=== PATIENT | male | born 1950 | race Caucasian/White ===

== ENCOUNTER 2017-08-09 12:27 | Inpatient (IN) | payer OTHER ==
[~2017-08-09] VITALS: Ht 172.7 cm; Wt 83.9 kg
[2017-08-09 13:12] LABS: ABSOLUTE BASOPHIL COUNT 0 /CUMM (0.0-0.2); ABSOLUTE EOSINOPHIL COUNT 0.2 /CUMM (0.0-0.7); ABSOLUTE GRANULOCYTE CT 7.9 /CUMM (1.4-6.5); ABSOLUTE MONOCYTE COUNT 0.9 /CUMM (0.10-0.60); BASOPHIL % 0.1 % (0.0-2.0); EOSINOPHIL % 2.1 % (0-5); GRANULOCYTE % 78.9 % (42.2-75.2); HEMATOCRIT 48.9 % (42-52); MEAN CORPUSCULAR HGB 30.9 PG (27.0-31.0); MEAN CORPUSCULAR VOLUME 88.3 FL (80.0-94.0); MEAN PLATELET VOLUME 8.7 FL (7.4-10.4); PLATELET COUNT 207 /CUMM (130-400); RBC DISTRIBUTION WIDTH 13.2 % (11.5-14.5); RED BLOOD CELL CT 5.54 /CUMM (4.70-6.10); WHITE BLOOD CELL COUNT 10.1 /CUMM (4.8-10.8)
[2017-08-09] MEDS ORDERED: AMLODIPINE BESYL5 M1 PO (14:54)
[2017-08-09] MEDS ORDERED: AMOXICILLIN500 M2 PO (14:55)
--- NOTE | 2017-08-09 15:32 | ED GI/GU/ABDOMINAL COMPLAINT ---
History of Present Illness General Chief Complaint: Abdominal Pain/Flank Pain Stated Complaint: BLOATED,CONSTIPATED, NO BM IN 1WK Source: patient Exam Limitations: no limitations Vital Signs & Intake/Output Vital Signs & Intake/Output Vital Signs Date Time Temp Pulse Resp B/P B/P Pulse O2 O2 Flow FiO2 Mean Ox Delivery Rate 08/09 1520 98.2 80 18 166/92 97 Room Air 08/09 1231 97.6 93 16 134/84 97 Room Air Allergies Coded Allergies: No Known Allergies (08/09/17) Reconcile Medications Amlodipine Besylate 5 MG TABLET 1 TAB PO DAILY heart (Reported) Amoxicillin 500 MG CAPSULE 1 CAP PO BID ANTIBIOTIC, INFECTION (Reported) Triage Note: PT TO ED C/O ABD BLOATING. ABD FEELS FIRM. STATES HE HAS BEEN CONSTIPATED SINCE LAST . THINKS HE MAY HAVE HAD 1 BM SINCE THEN BUT IS UNSURE. DENIES ANY ABD PAIN AT THE MOMENT. DENIES ANY N/V CURRENTLY. USED EX-LAX LAST NIGHT WITH NO RELIEF. ALSO STARTED TAKING PROBIOTICS. Triage Nurses Notes Reviewed? yes Onset: Gradual Duration: week(s): (1), constant, continues in ED, getting worse Timing: single episode today Quality/Severity: dullness, fullness Severity Numbers: 6 Location: generalized abdomen Radiation: no radiation Activities at Onset: none Prior Abdominal Problems: none Past Sexual History: Unobtainable at this time No Modifying Factors: none Modifying Factors: Worsens With: movement, palpation. Associated Symptoms: abdominal pain, nausea/vomiting, constipation HPI: 66-year-old male past medical history of hypertension and alcohol abuse presents for evaluation of constipation, abdominal distention, nausea and abdominal pain. Patient states that he has not had a bowel movement in over a week. He states that his abdomen is gradually become more distended. He reports associated nausea decreased appetite no vomiting. He also states that his urine is dark. He states that his abdomen has some diffuse fullness and mild pain. No back pain. No recent surgeries. He does note that he drinks approximately 6 beers almost every day last drink was 2 days ago. Denies any history of alcohol withdrawal or alcohol withdrawal seizures. He denies any history of pancreatitis. No diarrhea chest pain shortness of breath. He states that he took a laxative yesterday without any relief. He is not taking any pain medicine. Past History Travel History Traveled to [place] past 21 day No Medical History Any Pertinent Medical History? see below for history Cardiovascular: hypertension Surgical History Surgical History: non-contributory Psychosocial History Tobacco Use: Current Daily Use Daily Tobacco Use Amount/Type: => 5 Cigarettes daily Family History Hx Contributory? No Review of Systems Review of Systems Constitutional: Reports: no symptoms. EENTM: Reports: no symptoms. Respiratory: Reports: no symptoms. Cardiovascular: Reports: no symptoms. GI: Reports: see HPI, abdominal pain, bloating, constipation, nausea. Genitourinary: Reports: no symptoms. Musculoskeletal: Reports: no symptoms. Skin: Reports: no symptoms. Neurological/Psychological: Reports: no symptoms. Hematologic/Endocrine: Reports: no symptoms. Immunologic/Allergic: Reports: no symptoms. All Other Systems: Reviewed and Negative Physical Exam Physical Exam General Appearance: well developed/nourished, no apparent distress, alert, awake Head: atraumatic, normal appearance Eyes: Bilateral: PERRL, EOMI, other (scleral icterus). Ears, Nose, Throat, Mouth: hearing grossly normal, moist mucous membrane Neck: normal inspection, supple, full range of motion Respiratory: normal breath sounds, chest non-tender, no respiratory distress, lungs clear Cardiovascular: regular rate/rhythm, normal peripheral pulses Peripheral Pulses: 2+ radial (R), 2+ radial (L) Gastrointestinal: normal bowel sounds, no organomegaly, distention, abdomen is diffusely distended and firm. Mild diffuse tenderness Back: normal inspection, normal range of motion, no vertebral tenderness Extremities: normal range of motion Neurologic/Psych: no motor/sensory deficits, awake, alert, oriented x 3 Skin: intact, normal color, warm/dry Core Measures ACS in differential dx? No Sepsis Present: No Sepsis Focused Exam Completed? No Progress Differential Diagnosis: AAA, appendicitis, biliary colic, bowel obstruction, colon cancer, cholecystitis, diverticulitis, hepatitis, ischemic bowel, inflamm bowel dis, pancreatitis, peptic ulcer, PUD/GERD, SBO, ureterolithiasis, UTI/ pyelo, malignancy, cholangitis, alcoholic hepatitis, alcoholic gastritis Plan of Care: Orders Procedure Date/time Status Admit to inpatient 08/09 1658 Active URINALYSIS 08/09 1600 Active Add-on Test (ER Only) 08/09 1541 Active Add-on Test (ER Only) 08/09 1454 Active EKG 08/09 1454 Active Add-on Test (ER Only) 08/09 1416 Active MAGNESIUM 08/09 1304 Complete LIPASE 08/09 1304 Complete LACTIC ACID 08/09 1304 Complete HEPATITIS PANEL 08/09 1304 Complete DIRECT BILIRUBIN 08/09 1304 Complete TROPONIN LEVEL 08/09 1234 Complete COMPREHENSIVE METABOLIC PANEL 08/09 1234 Complete CBC WITHOUT DIFFERENTIAL 08/09 1234 Complete Laboratory Tests 08/09/17 1304: Anion Gap 15, Estimated GFR > 60, BUN/Creatinine Ratio 16.7, Glucose 156 H, Lactic Acid 1.1, Calcium 9.5, Magnesium 3.3 H, Total Bilirubin 8.0 H, Direct Bilirubin 6.8 H, AST 177 H, ALT 355 H, Alkaline Phosphatase 189 H, Troponin I < 0.01, Total Protein 7.9, Albumin 4.4, Globulin 3.5, Albumin/Globulin Ratio 1.3, Lipase 2465 H, CBC w Diff NO MAN DIFF REQ, RBC 5.54, MCV 88.3, MCH 30.9, MCHC 35.0, RDW 13.2, MPV 8.7, Gran % 78.9 H, Lymphocytes % 10.3 L, Monocytes % 8.6, Eosinophils % 2.1, Basophils % 0.1, Absolute Granulocytes 7.9 H, Absolute Lymphocytes 1.0 L, Absolute Monocytes 0.9 H, Absolute Eosinophils 0.2, Absolute Basophils 0, Hepatitis A IgM Ab NONREACTIVE, Hep Bs Antigen NONREACTIVE , Hep B Core IgM Ab Conf NONREACTIVE, Hepatitis C Antibody NONREACTIVE pt Seen and evaluated. He is reporting constipation and abdominal distention nausea and mild abdominal pain over the past week. On exam vital signs are stable however patient appears jaundiced. He does report heavy alcohol use last drink 2 days ago. No history of withdrawal seizures. Basic blood work was obtained and shows a lipase of almost 2500 elevated LFTs and elevated bilirubin of 8. CT scan shows evidence of a mass on the head of the pancreas and a dilated pancreatic duct and common bile duct. Spoke with Dr. Alexander from gastroenterology. He recommends admitting the patient for ERCP on Wednesday. Patient will require IV fluids and IV pain meds anti-emetic GI consult, ERCP, npo. Case discussed with Dr. Key he agrees Diagnostic Imaging: Viewed by Me: CT Scan. Discussed w/RAD: CT Scan. Radiology Impression: PATIENT: MOI PULLIAM PRESENT AGE: 66 PATIENT ACCOUNT NO: [id number] : 51 LOCATION: [facility] ORDERING PHYSICIAN: Tamika GONZALEZ SERVICE DATE: 08/09/17 EXAM TYPE: CAT - CT ABD & PELVIS W IV CONTRAST EXAMINATION: CT ABDOMEN AND PELVIS WITH CONTRAST CLINICAL INFORMATION: Constipation. Bilirubin 8.0 COMPARISON: None TECHNIQUE: Multidetector volumetric imaging was performed of the abdomen and pelvis following IV administration of 95 mL of Optiray 320 intravenous contrast. Sagittal and coronal reformatted images were obtained on the technologist's workstation. DLP: 332.69 mGy-cm FINDINGS: LUNG BASES: Linear atelectasis/ scarring at both lung bases. There is no basilar infiltrates and no pleural effusion. LIVER, GALLBLADDER, AND BILIARY TREE: There is slight dilatation of the left-sided intrahepatic biliary radicals. No lesion within the liver. The gallbladder is mildly distended. The extrahepatic CBD at the guera hepatis is dilated to a diameter of 1.1 cm. PANCREAS: There is a cystic mass at the head of the pancreas measuring 2.5 x 2.7 cm transverse. This has a density measurement of 6 Hounsfield units, simple fluid. The pancreatic duct is slightly dilated measuring about 3 mm at the pancreatic body. There is no edema around the pancreas. There are multiple coarse calcifications of the pancreatic head. These range in size from 1 to 2 mm to the largest measuring about 5 mm. These calcifications do not appear to be within the CBD but it is difficult to track the duct to the ampulla due to the cystic lesion at the pancreas. It is even difficult to see if this cystic mass at the head of the pancreas communicates to the CBD. The largest calcification at the of the pancreas measuring 5 mm is either within or directly adjacent to the pancreatic duct, coronal image 34. SPLEEN: Unremarkable. ADRENAL GLANDS: Unremarkable. KIDNEYS AND URETERS: The kidneys are normal in size, shape, and attenuation. No hydronephrosis, hydroureter, or calculi seen. No perinephric stranding. BLADDER: Unremarkable. GASTROINTESTINAL TRACT: There are multiple diverticula of the colon. The diverticula are most numerous at the distal descending colon. There is no diverticulitis. There is no bowel wall thickening or edema. Moderate volume of scattered stool in the colon. The appendix is normal. The small bowel loops are unremarkable. ABDOMINAL WALL: There is a fat-containing inguinal hernia on the left side measuring 2.2 cm AP. There is a small fat-containing umbilical hernia. LYMPH NODES: Normal. VASCULAR: There is scattered atherosclerotic vascular wall calcifications of aorta and iliac vessels. There is no aneurysm of the aorta. PELVIC VISCERA: Prostate measures 4.8 cm transverse with coarse calcification centrally. OSSEOUS STRUCTURES: Multilevel degenerative spondylosis spine with endplate spurring, disc height narrowing, and facet joint arthrosis involving the lower thoracic and the lower lumbar spine. IMPRESSION: 1. 2.5 x 2.7 cm cystic lesion at the head of the pancreas. This is sharply marginated and has a density measurement of simple fluid. 2. There is dilatation of both the CBD and the pancreatic duct. The gallbladder is mildly distended without edema around the gallbladder. No calcified gallstone. 3. There are multiple calcifications at the head of the pancreas. None of these calcifications appear related to the CBD or the ampulla but the coarse calcification measuring 5 mm at the head of the pancreas could be in or directly adjacent to the pancreatic duct at the head of the pancreas. 4. No evidence of pancreatitis with no edema around the pancreas. This critical result was discussed with Dr. Trent Victoria on 08/09/2017, 3:35 PM and it was ascertained that the content and urgency of the report was understood at the time of direct communication. DICTATED BY: Mumtaz Alberto MD DATE/TIME DICTATED:08/09/171512 [employer] INSTALLER:FABIANA DATE/TIME TRANSCRIBED:1512 CONFIDENTIAL, DO NOT COPY WITHOUT APPROPRIATE AUTHORIZATION. Initial ED EKG: sinus rhythm rate 78, probable left atrial abnormality, left ventricular hypertrophy, borderline prolonged QT, QTC 493 Departure Departure Disposition: STILL A PATIENT Condition: Stable Clinical Impression Primary Impression: Obstructive jaundice Secondary Impressions: Acute pancreatitis Qualifiers: Pancreatitis type: unspecified pancreatitis type Acute pancreatitis complication: unspecified Qualified Code: K85.90 - Acute pancreatitis without necrosis or infection, unspecified Referrals: Adrien BOYKIN,Robert Puentes (PCP/Family) Departure Forms: Customer Survey General Discharge Information Admission Note Spoke With: Fabrice BOYKIN,Leroy Michael Documentation of Exam: Documentation of any treatments & extenuating circumstances including Concerns Regarding Discharge (functional status, medication knowledge or non-compliance, living conditions, etc.) that warrant an admission rather than observation: [ Serial labs, serial abdominal exams, monitoring of vital signs, GI consult, ERCP , IR biopsy, nothing by mouth, IV fluids, IV pain meds, IV anti-emetics]
--- NOTE | 2017-08-09 15:47 | Cons- Gastroenterology ---
General Information and HPI Consulting Request Date of Consult: 08/09/17 Requested By: CARLOS Diana Reason for Consult: Obstructive jaundice. Increased LFTs. Abrnomal ct scan concerning for malignancy. Source of Information: patient Exam Limitations: no limitations History of Present Illness: Mr. Slater is a 66 year old male with a history of htn who presented to today with complaints of worsening abodminal distention and constipation for the past week and in his work up was found to have markedly elevated LFTs and a ct scan was concerning for a pancreatic malignancy. He notes that over the past week he has had progressive bloating and he has only passed a scant amount of stool during this time. He hasn't noticed himself to be jaundiced and the stool he has had has been normal in color, but he notes that his urine has been dark over the past week. He has had some nasuea and bilious vomiting, but no hematemesis. He reports a poor appetite and he feels as though he may be losing muscle mass/weight, but he isn't certain of this. He has some back pain too, but he denies any abdominal pain with eating radiating through to his back. He denies any pruritus or high fevers at home. In the ER he was afebrile and hemodynamically stable, but he was noted to have a direct hyperbilirubinemia along with moderately elevated transaminases and an elevated lipase as well and a ct scan done with IV contrast showed biliary ductal dilatation along with an abnormal pancreatic head concerning for a pancreatic malignancy. Allergies/Medications Allergies: Coded Allergies: No Known Allergies (08/09/17) Home Med List: Amlodipine Besylate 5 MG TABLET 1 TAB PO DAILY heart (Reported) Current Medications: Current Medications Sig/Vivi Start time Last Medication Dose Route Stop Time Status Admin Ondansetron HCl 0 .STK-MED ONE 08/09 1556 DC .ROUTE Ondansetron HCl 4 MG ONCE ONE 08/09 1545 DC 08/09 IV 08/09 1546 1557 Sodium Chloride 1,000 ML BOLUS ONE 08/09 1545 AC 08/09 IV 08/09 1644 1557 Past History Travel History Traveled to [place] past 21 day No Medical History Cardiovascular: hypertension Surgical History Surgical History: none Review of Systems Review of Systems Constitutional: Reports: malaise, weakness, unexplained weight loss. Denies: chills, diaphoresis, fever. EENTM: Denies: icterus. Cardiovascular: Denies: no symptoms. Respiratory: Denies: no symptoms. GI: Reports: see HPI. Genitourinary: Reports: see HPI (dark urine). Musculoskeletal: Reports: back pain. Denies: joint swelling. Skin: Denies: jaundice. Neurological/Psychological: Denies: no symptoms. Hematologic/Endocrine: Denies: no symptoms. Immunologic/Allergic: Denies: no symptoms. All Other Systems: Reviewed and Negative Exam & Diagnostic Data Vital Signs and I&O Vital Signs Date Time Temp Pulse Resp B/P B/P Pulse O2 O2 Flow FiO2 Mean Ox Delivery Rate 08/09 1520 98.2 80 18 166/92 97 Room Air 08/09 1231 97.6 93 16 134/84 97 Room Air Intake & Output 08/09 0400 08/08 0400 08/07 0400 Intake Total 0 Output Total 0 Balance 0 Intake, Oral 0 Output, Urine 0 Results Pertinent Lab Results: Laboratory Tests 08/09 1304 Chemistry Sodium (137 - 145 mmol/L) 137 Potassium (3.5 - 5.1 mmol/L) 3.5 Chloride (98 - 107 mmol/L) 101 Carbon Dioxide (22 - 30 mmol/L) 21 L Anion Gap (5 - 16) 15 BUN (9 - 20 mg/dL) 10 Creatinine (0.7 - 1.2 mg/dL) 0.6 L Estimated GFR (>60 ml/min) > 60 BUN/Creatinine Ratio (7 - 25 %) 16.7 Glucose (65 - 99 mg/dL) 156 H Lactic Acid (0.7 - 2.1 mmol/L) 1.1 Calcium (8.4 - 10.2 mg/dL) 9.5 Magnesium (1.6 - 2.3 mg/dL) 3.3 H Total Bilirubin (0.2 - 1.3 mg/dL) 8.0 H Direct Bilirubin (< 0.4 mg/dL) 6.8 H AST (17 - 59 U/L) 177 H ALT (21 - 72 U/L) 355 H Alkaline Phosphatase (< 127 U/L) 189 H Troponin I (<0.11 ng/ml) < 0.01 Total Protein (6.3 - 8.2 g/dL) 7.9 Albumin (3.5 - 5.0 g/dL) 4.4 Globulin (1.9 - 4.2 gm/dL) 3.5 Albumin/Globulin Ratio (1.1 - 2.2 %) 1.3 Lipase (23 - 300 U/L) 2465 H Hematology CBC w Diff NO MAN DIFF REQ WBC (4.8 - 10.8 /CUMM) 10.1 RBC (4.70 - 6.10 /CUMM) 5.54 Hgb (14.0 - 18.0 G/DL) 17.1 Hct (42 - 52 %) 48.9 MCV (80.0 - 94.0 FL) 88.3 MCH (27.0 - 31.0 PG) 30.9 MCHC (33.0 - 37.0 G/DL) 35.0 RDW (11.5 - 14.5 %) 13.2 Plt Count (130 - 400 /CUMM) 207 MPV (7.4 - 10.4 FL) 8.7 Gran % (42.2 - 75.2 %) 78.9 H Lymphocytes % (20.5 - 51.1 %) 10.3 L Monocytes % (1.7 - 9.3 %) 8.6 Eosinophils % (0 - 5 %) 2.1 Basophils % (0.0 - 2.0 %) 0.1 Absolute Granulocytes (1.4 - 6.5 /CUMM) 7.9 H Absolute Lymphocytes (1.2 - 3.4 /CUMM) 1.0 L Absolute Monocytes (0.10 - 0.60 /CUMM) 0.9 H Absolute Eosinophils (0.0 - 0.7 /CUMM) 0.2 Absolute Basophils (0.0 - 0.2 /CUMM) 0 Serology Hepatitis A IgM Ab (NONREACTIVE) NONREACTIVE Hep Bs Antigen (NONREACTIVE) Pending Hep B Core IgM Ab Conf (NONREACTIVE) NONREACTIVE Hepatitis C Antibody (NONREACTIVE) NONREACTIVE Assessment/Plan Assessment/Recommendations: Assessment: Mr. Slater is a 66 year old male who presented with complaints of bloating and constiaption and in his work up was noted to have obstructive jaundice presumably secondary to a pancreatic cancer based on the preliminary reports of the ct scan. He is currently without cholangitis (no fevers or significant pain) so endoscopic intervention to decompress the biliary tree isn' t urgent, but it should ultimately be done to both relieve the obstruction and to get brushings from the duct to further evaluate for malignancy. Of note, his lipase is moderately elevated to a level that would indicate pancreatitis, but he is currently without symptoms of pancreatitis (abd pain that radiates to the back with eating) and I therefore feel the elevated lipase is from the tumor and not necessarily acute pancreatitis. Recommendations: 1. Admit for observation. 2. Follow daily lfts 3. Follow up official ct scan results 4. Notify GI for signs of cholangitis (high fevers, RUQ pain etc) 5. Observe off of antibiotics 6. Check an INR 7. Miralax as needed for constipation 8. Analgesia as needed 9. Advance diet as tolerated 10. Will tentatively plan for a diagnostic/therapeutic ERCP on Wednesday, but will do sooner if he develops signs of cholangitis in the interim time period. Consult Acknowledgment - Thank you for your consult request.
--- NOTE | 2017-08-09 16:08 | CT SCAN REPORT ---
EXAMINATION: CT ABDOMEN AND PELVIS WITH CONTRAST CLINICAL INFORMATION: Constipation. Bilirubin 8.0 COMPARISON: None TECHNIQUE: Multidetector volumetric imaging was performed of the abdomen and pelvis following IV administration of 95 mL of Optiray 320 intravenous contrast. Sagittal and coronal reformatted images were obtained on the technologist's workstation. DLP: 332.69 mGy-cm FINDINGS: LUNG BASES: Linear atelectasis/scarring at both lung bases. There is no basilar infiltrates and no pleural effusion. LIVER, GALLBLADDER, AND BILIARY TREE: There is slight dilatation of the left-sided intrahepatic biliary radicals. No lesion within the liver. The gallbladder is mildly distended. The extrahepatic CBD at the guera hepatis is dilated to a diameter of 1.1 cm. PANCREAS: There is a cystic mass at the head of the pancreas measuring 2.5 x 2.7 cm transverse. This has a density measurement of 6 Hounsfield units, simple fluid. The pancreatic duct is slightly dilated measuring about 3 mm at the pancreatic body. There is no edema around the pancreas. There are multiple coarse calcifications of the pancreatic head. These range in size from 1 to 2 mm to the largest measuring about 5 mm. These calcifications do not appear to be within the CBD but it is difficult to track the duct to the ampulla due to the cystic lesion at the pancreas. It is even difficult to see if this cystic mass at the head of the pancreas communicates to the CBD. The largest calcification at the of the pancreas measuring 5 mm is either within or directly adjacent to the pancreatic duct, coronal image 34. SPLEEN: Unremarkable. ADRENAL GLANDS: Unremarkable. KIDNEYS AND URETERS: The kidneys are normal in size, shape, and attenuation. No hydronephrosis, hydroureter, or calculi seen. No perinephric stranding. BLADDER: Unremarkable. GASTROINTESTINAL TRACT: There are multiple diverticula of the colon. The diverticula are most numerous at the distal descending colon. There is no diverticulitis. There is no bowel wall thickening or edema. Moderate volume of scattered stool in the colon. The appendix is normal. The small bowel loops are unremarkable. ABDOMINAL WALL: There is a fat-containing inguinal hernia on the left side measuring 2.2 cm AP. There is a small fat-containing umbilical hernia. LYMPH NODES: Normal. VASCULAR: There is scattered atherosclerotic vascular wall calcifications of aorta and iliac vessels. There is no aneurysm of the aorta. PELVIC VISCERA: Prostate measures 4.8 cm transverse with coarse calcification centrally. OSSEOUS STRUCTURES: Multilevel degenerative spondylosis spine with endplate spurring, disc height narrowing, and facet joint arthrosis involving the lower thoracic and the lower lumbar spine. IMPRESSION: 1. 2.5 x 2.7 cm cystic lesion at the head of the pancreas. This is sharply marginated and has a density measurement of simple fluid. 2. There is dilatation of both the CBD and the pancreatic duct. The gallbladder is mildly distended without edema around the gallbladder. No calcified gallstone. 3. There are multiple calcifications at the head of the pancreas. None of these calcifications appear related to the CBD or the ampulla but the coarse calcification measuring 5 mm at the head of the pancreas could be in or directly adjacent to the pancreatic duct at the head of the pancreas. 4. No evidence of pancreatitis with no edema around the pancreas. This critical result was discussed with Dr. Trnet Victoria on 08/09/2017, 3:35 PM and it was ascertained that the content and urgency of the report was understood at the time of direct communication.
--- NOTE | 2017-08-09 17:51 | Admission Certification ---
Admission Certification Certification Statement - As attending physician, I certify that at the time of - admission, based on clinical presentation, severity of - symptoms, need for further diagnostic testing and - therapeutic interventions, and risk of adverse outcomes - without in-hospital treatment, in my clinical assessment, - this patient requires an acute hospital stay for a minimum - of two nights or longer. I have also considered psychsocial - factors such as support system, advanced age, financial - issues, cognitive issues, and failed out-patient treatments, - past re-admission history, safety of patient, and lack of - compliance as applicable. Specific rationale supporting this admission is: obstructive jaundice new onset/ pancreatic mass
--- NOTE | 2017-08-09 17:51 | History & Physical ---
Keith BOYKIN,[facility] 08/09/17 1751: General Information and HPI MD Statement: I have seen and personally examined MOI PULLIAM and documented this H&P. The patient is a 66 year old M who presented with a patient stated chief complaint of [abdominal pain]. Source of Information: patient Exam Limitations: no limitations History of Present Illness: The patient is 66-year-old gentleman with past medical history of hypertension. He presented to [facility] ED on 08/09 with complaint of abdominal pain and constipation for past 1 week. The patient was in usual state of health until last Wednesday when he started experiencing lower abdominal pain. The pain is 5 out of 10 in intensity, nagging in character. Nonradiating diffuse no aggravating or relieving factor. Patient denies any change in color of stool or urine. He did not notice any yellowing of his skin. Patient denies any itching or pruritus. Patient states that this has never happened for him before and it occurred all of a sudden. 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 Review of system patient reports chills. Denies fever chest pain palpitations shortness of breath. He reports weight loss in the past. Has not weighed himself but notices change his clothes size. He also has been having poor appetite and for the past 1 week. Patient reports drinking 6 beers everyday for the past 4 years. Also admits to using 5-6 cigars everyday as well. Denies any illicit drug abuse. No recent surgeries. Allergies/Medications Allergies: Coded Allergies: No Known Allergies (08/09/17) Past History Travel History Traveled to [place] past 21 day No Medical History Cardiovascular: hypertension Surgical History Surgical History: non-contributory Past Family/Social History Family History Relations & Conditions if any FATHER (HTN). Psychosocial History Where do you live? Home Who Do You Live With? spouse, child Services at Home: None Primary Language: Persian Smoking Status: Current Everyday Smoker ETOH Use: 6 beers/day Functional Ability ADLs Independent: dressing, eating, toileting, bathing. Ambulation: independent IADLs Independent: shopping, housework, finances, food prep, telephone, transportation , medication admin. Review of Systems Review of Systems Constitutional: Reports: see HPI. Exam & Diagnostic Data Last 24 Hrs of Vital Signs/I&O Vital Signs Date Time Temp Pulse Resp B/P B/P Pulse O2 O2 Flow FiO2 Mean Ox Delivery Rate 08/09 1755 98.0 80 18 158/81 98 Room Air 08/09 1520 98.2 80 18 166/92 97 Room Air 08/09 1231 97.6 93 16 134/84 97 Room Air Intake & Output 08/09 1600 08/09 0800 08/09 0000 Intake Total 0 Output Total 0 Balance 0 Intake, Oral 0 Output, Urine 0 Physical Exam General Appearance Alert, Oriented X3, Cooperative HEENT Atraumatic Neck Supple Cardiovascular Normal S1, Normal S2 Lungs Clear to Auscultation Abdomen Normal Bowel Sounds, distended mild tenderness on exam Neurological Normal Speech Extremities No Clubbing Vascular Normal Pulses Last 24 Hrs of Labs/[place]: Laboratory Tests 08/09/171928: Urinalysis MOD H, Urine Color LEATHA, Urine Clarity HAZY H, Urine pH 6.0, Ur Specific [place] 1.015, Urine Protein 30 H, Urine Ketones 40 H, Urine Nitrite NEG, Urine Bilirubin POS@ICTO H, Urine Urobilinogen 1.0, Ur Leukocyte Esterase NEG, Ur Microscopic SEDIMENT EXAMINED, Urine RBC RARE, Urine WBC 3-5 H, Ur Epithelial Cells RARE, Urine Bacteria FEW H, Granular Casts 1-3 H, Urine Mucus FEW, Urine Hemoglobin TRACE-INTACT H, Urine Glucose NEG 08/09/17 1304: Anion Gap 15, Estimated GFR > 60, BUN/Creatinine Ratio 16.7, Glucose 156 H, Lactic Acid 1.1, Calcium 9.5, Magnesium 3.3 H, Total Bilirubin 8.0 H, Direct Bilirubin 6.8 H, AST 177 H, ALT 355 H, Alkaline Phosphatase 189 H, Troponin I < 0.01, Total Protein 7.9, Albumin 4.4, Globulin 3.5, Albumin/Globulin Ratio 1.3, Lipase 2465 H, CBC w Diff NO MAN DIFF REQ, RBC 5.54, MCV 88.3, MCH 30.9, MCHC 35.0, RDW 13.2, MPV 8.7, Gran % 78.9 H, Lymphocytes % 10.3 L, Monocytes % 8.6, Eosinophils % 2.1, Basophils % 0.1, Absolute Granulocytes 7.9 H, Absolute Lymphocytes 1.0 L, Absolute Monocytes 0.9 H, Absolute Eosinophils 0.2, Absolute Basophils 0, Hepatitis A IgM Ab NONREACTIVE, Hep Bs Antigen NONREACTIVE , Hep B Core IgM Ab Conf NONREACTIVE, Hepatitis C Antibody NONREACTIVE Diagnostic Data Other Results CT ABD & PELVIS W IV CONTRAST 1. 2.5 x 2.7 cm cystic lesion at the head of the pancreas. This is sharply marginated and has a density measurement of simple fluid. 2. There is dilatation of both the CBD and the pancreatic duct. The gallbladder is mildly distended without edema around the gallbladder. No calcified gallstone. 3. There are multiple calcifications at the head of the pancreas. None of these calcifications appear related to the CBD or the ampulla but the coarse calcification measuring 5 mm at the head of the pancreas could be in or directly adjacent to the pancreatic duct at the head of the pancreas. 4. No evidence of pancreatitis with no edema around the pancreas. Assessment/Plan Assessment: The patient is 66-year-old gentleman with past medical history of hypertension. He presented to [facility] ED on 08/09 with complaint of abdominal pain and constipation for past 1 week. Vitals on presentation afebrile and hemodynamically stable Admission labs are significant for direct hyperbilirubinemia along with elevated transaminases along with elevated lipase. CT scan findings dictated above The patient is being admitted to general medicine floor and treated evaluate her for following conditions #Obstructive jaundice secondary to pancreatic mass Patient is presenting with abdominal pain and constipation along with direct hyperbilirubinemia, transaminitis and elevated lipase. Ct scan done with IV contrast showed biliary ductal dilatation along with an abnormal pancreatic head concerning for a pancreatic malignancy. -Admit to general medicine floor -Monitor vitals -Monitor urine WBC curve -Monitor LFTs -Patient is afebrile without white count, monitor off antibiotics -GI evaluation -IV fluids and adequate pain control -If patient becomes febrile or has right upper quadrant pain or any other signs of cholangitis call gastroenterology service immediately -Patient will require ERCP, will coordinate with GI serviced -Consider checking , CA 19-9 #Elevated lipase Patient does not meet the criteria of pancreatitis he does not have any epigastric tenderness, no evidence of pancreatic inflammation on CT however he has elevated lipase which can be contributed to pancreatic malignancy -Continue to monitor for any signs of pancreatitis #Constipation Will start patient on aggressive bowel regimen MiraLAX and Dulcolax suppository #Alcohol use Patient admits to consuming 6 beers for the past 4 years. -Will begin patient on CIWA protocol -Monitor closely for signs of alcohol withdrawal #Tobacco dependence Patient admits to using 5-6 cigars every day -Nicotine patch Regular diet/and DVT prophylaxis with Lovenox/FC As Ranked By This Provider Problem List: 1. Obstructive jaundice Core Measures/Misc (01/03) Acute Coronary Syndrome ACS Diagnosis: No Congestive Heart Failure Congestive Heart Failure Diagnosis No Cerebrovascular Accident CVA/TIA Diagnosis: No VTE (View Protocol) VTE Risk Factors Age>40 No Mechanical VTE Prophylaxis d/t N/A MechProphylax Ordered No VTE Pharm Prophylaxis d/t NA PharmProphylax ordered Sepsis (View protocol) Sepsis Present: No Javier BOYKIN,Layo 08/09/17 2676: Resident Review Statement Resident Statement: examined this patient, discussed with statistics intern, agreed with statistics intern Other Findings: 66-year-old gentleman with a significant history of alcohol abuse and hypertension presents with abdominal symptoms of distention, constipation and dark urine in the context of elevated LFTs and radiological finding suggesting of obstruction. Impression * Obstructive jaundice. As evident by elevated total bilirubin and most significantly direct bilirubin, and alkaline phosphatase. In the context of CT finding of CBD dilatation and on the pancreatic ampulla, this is very concerning for pancreatic malignancy as the cause. * Transaminitis. * Elevated lipase. In order to diagnose pancreatitis there has to be at least 2 out of the 3 criteria (abdominal pain characteristic of epigastric pain often radiating to the back, elevated lipase 2-3 times or greater than the upper limit of normal, radiological findings of inflammatory features of pancreas). Currently patient only has the elevated lipase, therefore his presentation is not consistent with pancreatitis. * Constipation * Tobacco abuse Plan Admit to general medicine floor Consider bowel rest IV fluid hydration Will trend LFTs Will closely monitor for any signs of fever or infection as this might suggest cholangitis and if present will start antibiotic treatment. For now we'll keep off any antibiotics. Continue following GI recommendation We'll keep nothing by mouth on Wednesday night in anticipation for ERCP, if patient develops cholangitis, ERCP will be have to be done prior to the scheduled Wednesday. CIWA monitoring with symptoms triggered Leroy Tyler 08/09/17 6815: General Information and HPI Allergies/Medications Home Med list Amlodipine Besylate 5 MG TABLET 1 TAB PO DAILY heart (Reported) Attending MD Review Statement Attending Statement Attending MD Statement: examined this patient, discuss w/resident/PA/GAMBLING DEALER, agreed w/resident/PA/GAMBLING DEALER, reviewed EMR data (avail) Attending Assessment/Plan: 66-year-old male with past medical history of smoking, hypertension, EtOH abuse presented to the ER with chief complaint of bloating sensation in the belly and constipation for 1 week duration. Patient says he has been unable to eat for the last 1 week due to this bloating sensation. Patient has also noticed that his urine has become darker crowder brown and that he is urinating more frequently and smaller amounts. Patient also was noted to have elevated LFTs in the emergency room and a CT scan of the abdomen done showed cystic mass in pancreas with obstructive jaundice with suggestion of possible malignancy as a differential diagnosis.. Patient was seen by gastroenterology in the emergency room and the plan is to do ERCP on Wednesday. Patient says he drinks about 6 beers a day for the last 3-4 years after he retired. We will monitor closely for alcohol withdrawal and put him on CIWA protocol. Patient smokes about 5-6 cigars a day. Patient previously smoked cigarettes and quit for about 23 years ago and started smoking cigars about 5-8 years ago. We' ll start him on nicotine patch 14 mg daily.
[2017-08-09 20:00] VITALS: BP 140/90
[2017-08-09 20:20] VITALS: BP 140/90
[2017-08-09 22:36] VITALS: BP 156/84
[2017-08-10 07:03] VITALS: BP 150/76
--- NOTE | 2017-08-10 07:19 | PN- Housestaff ---
Jose RafaelLysite 08/10/17 0719: Subjective Follow-up For: Obstructive jaundice possibly due to pancreatic head tumor Subjective: No overnight events patient remained afebrile. His seen and examined this morning he denied any chest pain, short of breath, nausea, vomiting, chills, fever and dysuria. Patient reported having dull abdominal pain 4/10 and constipation. Possibly patient is being discharged to see pancreatotolgist to actually for endoscopic ultrasound and biopsy. Patient has been advised to return to the ER should he develop abdominal pain vomiting or fever. Review of Systems Constitutional: Denies: chills, fever. EENTM: Reports: no symptoms. Cardiovascular: Denies: chest pain, palpitations. Respiratory: Denies: cough, short of breath, sputum production. Gastrointestinal: Reports: abdominal pain, constipation. Denies: diarrhea, nausea. Genitourinary: Reports: no symptoms. Neurological/Psychological: Reports: no symptoms. Objective Last 24 Hrs of Vital Signs/I&O Vital Signs Date Time Temp Pulse Resp B/P B/P Pulse O2 O2 Flow FiO2 Mean Ox Delivery Rate 08/10 0703 97.9 74 20 150/76 97 08/09 2236 98.4 90 20 156/84 98 Room Air 08/09 2020 98.0 82 20 140/90 100 Room Air 08/09 2000 98.0 82 20 140/90 08/09 1755 98.0 80 18 158/81 98 Room Air 08/09 1520 98.2 80 18 166/92 97 Room Air 08/09 1231 97.6 93 16 134/84 97 Room Air Intake & Output 08/10 1600 08/10 0800 08/10 0000 Intake Total 1200 1040 Output Total Balance 1200 1040 Intake, IV 1200 800 Intake, Oral 240 Number 0 Bowel Movements Patient 185 lb Weight Weight Reported by Patient Measurement Method Physical Exam General Appearance: Alert, Oriented X3, Cooperative Skin: No Rashes Skin Temp/Moisture Exam: Warm/Dry Sepsis Skin Exam (color): Normal for Ethnicity HEENT: Atraumatic, PERRLA, EOMI Neck: Supple Cardiovascular: Normal S1, Normal S2 Lungs: Clear to Auscultation Abdomen: Soft, No Tenderness Neurological: Normal Speech, Strength at 5/5 X4 Ext, Normal Tone Extremities: No Edema Assessment/Plan Assessment: 66 yo m smoker (5-6 cigarettes/day), alcoholic with past medical history of hypertension. He presented to [place] ED on 08/09 with complaint of abdominal pain and constipation for past 1 week. We are following the patient of general medicine floor for following problems: Painless obstructive jaundice possibly due to pancreatic head mass: -Follow-up LFTs -Follow-up the patient is developing any fever or increasing WBC count and we will notify GI -We will notify GI patient developing any cholangitis symptoms -Possibly patient will be discharged today to see pancreatiologist for possible endoscopic ultrasound and biopsy at [place]. -Patient will follow GI as outpatient. -Advance her diet as tolerated. -Pain management according to pain pathway. History of hypertension: -Continue home medications Alcohol abuse: -Monitoring him on CIWA score. He didn't score. Smoking cessation: -Smoking cessation counselling -Nicotine patch as needed. DVT prophylaxis: Mechanical and cutaneous Lovenox CODE STATUS: Full code Problem List: 1. Obstructive jaundice Pain Ratin Pain Location: ABDOMEN Pain Goal: Remain pain free Pain Plan: PAIN PATHWAY Tomorrow's Labs & Rationales: NONE Anusha Rodriguez MD 08/10/17 1137: Attending MD Review Statement Attending Statement Attending MD Statement: examined this patient, discuss w/resident/PA/MAILROOM MESSENGER, agreed w/resident/PA/MAILROOM MESSENGER, reviewed EMR data (avail), discussed with nursing, discussed with case mgmt, amended to note Attending Assessment/Plan: Patient seen and examined. No issues overnight reported by nursing staff. Lying comfortably in bed. Denies nausea vomiting. Denies abdominal pain. Reports some abdominal fullness. Reports that he has been constipated for over a week. Examination he does not appear jaundiced clinically. Abdomen is nondistended, soft and nontender with normal bowel sounds. He was evaluated by the gastroenterology service today. I did discuss with Dr. Alexander. Recommendations are for patient to follow-up at [facility] electively to undergo an endoscopic ultrasound at which point appropriate biopsies can be taking and treatment plan for him. This has been discussed with the patient. He is in agreement with this. Recommendations: -Patient has received a bowel regimen this morning. After having a bowel movement may be discharged home. -Is to follow the gastroenterology service as an outpatient for scheduling of endoscopic ultrasound at [facility]. -Patient has been advised to return to the ER should he develop abdominal pain vomiting or fever. He verbalized understanding.
[2017-08-10 08:00] VITALS: BP 150/76
[2017-08-10 08:41] LABS: ABSOLUTE BASOPHIL COUNT 0 /CUMM (0.0-0.2); ABSOLUTE EOSINOPHIL COUNT 0.3 /CUMM (0.0-0.7); ABSOLUTE GRANULOCYTE CT 6.5 /CUMM (1.4-6.5); ABSOLUTE LYMPH COUNT 1.3 /CUMM (1.2-3.4); BASOPHIL % 0.4 % (0.0-2.0); EOSINOPHIL % 3.7 % (0-5); GRANULOCYTE % 70.5 % (42.2-75.2); HEMATOCRIT 44.7 % (42-52); MEAN CORPUSCULAR HGB 30.6 PG (27.0-31.0); MEAN CORPUSCULAR VOLUME 90.2 FL (80.0-94.0); MEAN PLATELET VOLUME 9.7 FL (7.4-10.4); PLATELET COUNT 202 /CUMM (130-400); RBC DISTRIBUTION WIDTH 13.3 % (11.5-14.5); RED BLOOD CELL CT 4.96 /CUMM (4.70-6.10); WHITE BLOOD CELL COUNT 9.1 /CUMM (4.8-10.8)
--- NOTE | 2017-08-10 09:36 | Patient Discharge Instructions ---
Discharge Instructions General Discharge Information You were seen/treated for: Abdominal pain, jaundice, nausea, vomiting, change of color of stool or urine, fever, chills, change in weight and shortness of breath. If you experience any of these symptoms please come to ED or call to your pcp Watch for these problems: Painless obstructive jaundice Pancreatic head mass Special Instructions: Follow up with pcp in one week. Please follow pancraetologist at [facility] for EUS for pancraetic head mass and further work up. Follow GI in one week Diet Recommended Diet: Regular Activity Activity Self Limited: Yes Acute Coronary Syndrome Inclusion Criteria At DC or during hospital stay patient has or had the following: ACS DIAGNOSIS No Discharge Core Measures Meds if any: Prescribed or Continued at Discharge Meds if any: NOT Prescribed or Continued at Discharge Congestive Heart Failure Inclusion Criteria At DC or during hospital stay patient has or had the following: CHF DIAGNOSIS No Discharge Core Measures Meds if any: Prescribed or Continued at Discharge Meds if any: NOT Prescribed or Continued at Discharge Cerebrovascular accident Inclusion Criteria At DC or during hospital stay patient has or had the following: CVA/TIA Diagnosis No Discharge Core Measures Meds if any: Prescribed or Continued at Discharge Meds if any: NOT Prescribed or Continued at Discharge Venous thromboembolism Inclusion Criteria VTE Diagnosis No VTE Type NONE VTE Confirmed by (Test) NONE Discharge Core Measures - Per Current guidelines, there needs to be overlap - treatment for the first 5 days of Warfarin therapy. - If discharged on Warfarin prior to 5 days of - overlap therapy, the patient will need to be - assessed for post discharge needs including - *Post discharge parental anticoagulation - *Warfarin and/or parental anticoagulation education - *Follow up date to check INR post discharge At least 5 days overlap therapy as Inpatient No Meds if any: Prescribed or Continued at Discharge Note: Overlap Therapy is Warfarin and Anticoagulant Meds if any: NOT Prescribed or Continued at Discharge
[2017-08-10 10:00] VITALS: BP 150/76
--- NOTE | 2017-08-10 13:20 | Discharge Summary ---
Visit Information Visit Dates Admission Date: 08/09/17 Discharge Date: 08/10/17 Hospital Course Course Attending Physician: Anusha Rodriguez MD Primary Care Physician: Robert Jurado MD Hospital Course: 66 YO M smoker (5-6 cigarettes/day), alcoholic with past medical history of hypertension. He presented to [place] ED with complaint of abdominal pain and constipation for past 1 week. ED course: Vitals: Temperature 97.6, pulse 93, respiratory rate 16, blood pressure 1:30/84, oxygen saturation 97% on room air Labs:WBC 10.1, hemoglobin 17.1, hematocrit 48.9, platelet count 29, sodium 137, potassium 3.9, BUN 10, creatinine 0.6, BUNs/creatinine ratio 16.7, glucose 156, lactic acid 1.1, magnesium 3.3, total bilirubin is 8.0, direct bilirubin 6.8, AST 177, ALT 355, alkaline phosphatase 189, lipase 2465, troponin less than 0.01 Painless obstructive jaundice due to pancreatic head mass: Patient was admitted with chief complaint of abdominal pain and constipation. On labs patient was found to have elevated bilirubin and on imaging study patient had mass in head of pancreas. Patient was kept off antibiotics as he was afebrile and normal WBC count. Abdominal pain was managed with pain medications. GI consult was obtained and recommendations were followed. Initially patient was kept nothing by mouth to do inpatient ERCP but later on GI suggested to get an appointment for the patient at [place] with the pancreatologist for EUS rather than ERCP. Patient's diet was advanced as tolerated and he was discharged. Patient will get endoscopic ultrasound and biopsies at [facility]. Patient was instructed to follow Dr. Alexander after the discharge and he will guide the patient further appointment at [facility] for endoscopic ultrasound and biopsies. Patient was advised to return to ED if he start developing chills, fever, worsening abdominal pain or nausea and vomiting. History of hypertension: During hospital stay his home medication for hypertension was continued. Alcohol abuse: Considering patient's history of alcohol abuse who was kept on CIWA to watch for alcohol withdrawal symptoms. During hospital stay patient didn't withdrawal. Smoking cessation: Smoking cessation counseling was done and he was offered nicotine patch when necessary. DVT prophylaxis: Mechanical and cutaneous Lovenox CODE STATUS: Full code Allergies: Coded Allergies: No Known Allergies (08/09/17) Pertinent Lab Results: Abdominal and pelvic CT scan on 08/09/2017: .5 x 2.7 cm cystic lesion at the head of the pancreas. This is sharply marginated and has a density measurement of simple fluid. 2. There is dilatation of both the CBD and the pancreatic duct. The gallbladder is mildly distended without edema around the gallbladder. No calcified gallstone. 3. There are multiple calcifications at the head of the pancreas. None of these calcifications appear related to the CBD or the ampulla but the coarse calcification measuring 5 mm at the head of the pancreas could be in or directly adjacent to the pancreatic duct at the head of the pancreas. 4. No evidence of pancreatitis with no edema around the pancreas. This critical result was discussed with Dr. Trent Victoria on 08/09/2017, 3:35 PM and it was ascertained that the content and urgency of the report was understood at the time of direct communication. WBC count 9.1, hemoglobin 15.2, hematocrit 44.7, platelet count 202, sodium 138, potassium 3.4, BUN 6, creatinine 0.5, glucose 156, total bilirubin 7.4, direct bilirubin 6.1, AST 172, ALT 342 Disposition Summary Disposition Principal Diagnosis: Painless obstructive jaundice Pancreatic head mass Additional Diagnosis: History of hypertension Discharge Disposition: home or self care Discharge Instructions General Discharge Information Code Status: Full Code Patient's Diet: Regular diet Patient's Activity: Self limited Follow-Up Instructions/Appts: Follow up with pcp in one week. Please follow pancraetologist at [facility] for EUS for pancraetic head mass and further work up. Follow GI in one week Medications at Discharge Discharge Medications: Stop taking the following medications: Amoxicillin (Amoxicillin) 500 MG CAPSULE ORAL TWICE DAILY Qty = 90 Continue taking these medications: Amlodipine Besylate (Amlodipine Besylate) 5 MG TABLET 1 Tablet ORAL DAILY Qty = 30 Copies To: Adrien BOYKIN,Robert Alexander MD,Jhonny Hicks MD Review Statement Documenting Attending: Anusha Rodriguez MD Other Findings: Discharged in stable condition
== END 2017-08-10 11:56 | DRG 446 ==
LOC: ERH 12:27 → 2NB 16:58 → ERHI 16:58 → ENRESERV 18:38 → ENTRNSPT 19:19 → EDTRNSPTSTS 19:24 → EDTRNSPT 19:24 → 2NB 19:29 → CMPTRNSPT 19:37 → 2NB 08-10 09:51 → ENPENDDIS 08-10 10:44 → 2NB 08-10 11:56
PROVIDERS: Physician Assistant Medical; Student in an Organized Health Care Education/Training Program
DX: K83.1 Obstruction of bile duct (principal); D49.0 Neoplasm of unspecified behavior of digestive system; E80.7 Disorder of bilirubin metabolism, unspecified; F10.10 Alcohol abuse, uncomplicated; K59.00 Constipation, unspecified; I10 Essential (primary) hypertension; Z72.0 Tobacco use; R74.0 Nonspecific elevation of levels of transaminase and lactic acid dehydrogenase [LDH]; R63.4 Abnormal weight loss
CPT/HCPCS: 2NBSP; 36415; 74177; 81001; 82436; 93005; 93010; 96374; G0480; J1650; J2405; J7120

== ENCOUNTER 2017-08-14 12:44 | Emergency (ER) | payer OTHER ==
[~2017-08-14 12:44] MED LIST: AMLODIPINE BESYL5 M1 PO; AMOXICILLIN500 M2 PO
[2017-08-14 13:14] LABS: ABSOLUTE BASOPHIL COUNT 0 /CUMM (0.0-0.2); ABSOLUTE EOSINOPHIL COUNT 0 /CUMM (0.0-0.7); ABSOLUTE LYMPH COUNT 0.8 /CUMM (1.2-3.4); ABSOLUTE MONOCYTE COUNT 1.6 /CUMM (0.10-0.60); BASOPHIL % 0.1 % (0.0-2.0); EOSINOPHIL % 0 % (0-5); GRANULOCYTE % 88.6 % (42.2-75.2); HEMATOCRIT 45.5 % (42-52); MEAN CORPUSCULAR HGB 30.6 PG (27.0-31.0); MEAN CORPUSCULAR VOLUME 89.8 FL (80.0-94.0); PLATELET COUNT 232 /CUMM (130-400); RBC DISTRIBUTION WIDTH 13.8 % (11.5-14.5); RED BLOOD CELL CT 5.07 /CUMM (4.70-6.10)
[2017-08-14 13:17] LABS: WHITE BLOOD CELL COUNT 21.4 /CUMM (4.8-10.8)
[2017-08-14 13:22] LABS: PT 21.5 SEC (9.4-12.5); PTT 31 SEC (25-37)
--- NOTE | 2017-08-14 15:00 | RADIOLOGY REPORT ---
EXAMINATION: XR PORTABLE CHEST CLINICAL INFORMATION: Question pneumonia; weakness, nausea and vomiting. COMPARISON: None TECHNIQUE: Portable frontal view of the chest was obtained. FINDINGS: The heart, great vessels, pulmonary vasculature mediastinum are normal. There is mild left base airspace disease. The right lung field appears clear. No pleural effusion or pneumothorax is seen. There is no acute osseous abnormality. IMPRESSION: There is mild left base atelectasis versus infiltrate, which could be more fully evaluated with a lateral view. Recommend continued radiographic follow-up to clearance.
--- NOTE | 2017-08-14 15:02 | ULTRASOUND REPORT ---
EXAMINATION: US RETROPERITONEAL COMPLETE (RENAL) CLINICAL INFORMATION: Weakness with nausea and vomiting.. COMPARISON: No direct comparisons. CT abdomen/pelvis 08/09/2017. TECHNIQUE: Real-time imaging of the kidneys and bladder. FINDINGS: RIGHT KIDNEY: 10.8 x 5.5 x 4.9 cm (SAG x AP x TRV). The kidney is normal in size, contour, and echogenicity. Renal cortical thickness is normal. No calculi or focal parenchymal lesions. No hydronephrosis. LEFT KIDNEY: 12.0 x 5.8 x 5.5 cm (SAG x AP x TRV). The kidney is normal in size, contour, and echogenicity. Renal cortical thickness is normal. No calculi or focal parenchymal lesions. No hydronephrosis. BLADDER: Decompressed with Quesada catheter in place. The prostate is mildly enlarged with coarse calcifications. The prostate measures up to 4.0 x 2.8 x 2.8 cm. ADDITIONAL FINDINGS: There is trace perihepatic ascites. IMPRESSION: Unremarkable sonographic evaluation of the kidneys. No hydronephrosis. Trace perihepatic ascites, nonspecific. Mildly enlarged prostate..
--- NOTE | 2017-08-14 16:46 | ED GI/GU/ABDOMINAL COMPLAINT ---
History of Present Illness General Chief Complaint: General Adult Stated Complaint: GEN WEAKNESS Source: patient, family, old records Exam Limitations: no limitations Vital Signs & Intake/Output Vital Signs & Intake/Output Vital Signs Date Time Temp Pulse Resp B/P B/P Pulse O2 O2 Flow FiO2 Mean Ox Delivery Rate 08/14 1729 97.6 84 16 111/57 95 Nasal 2.5L Cannula 08/14 1517 97.7 86 20 126/68 97 Nasal 2.5L Cannula 08/14 1319 85 19 131/73 99 Nasal 2.0L Cannula 08/14 1254 98.5 95 Nasal 2.0L Cannula 08/14 1251 Nasal 2.0L Cannula 08/14 1249 100 16 99/57 89 Room Air Allergies Coded Allergies: No Known Allergies (08/09/17) Reconcile Medications Amlodipine Besylate 5 MG TABLET 1 TAB PO DAILY BP (Reported) Onabotulinumtoxina (Botox) (Unknown Strength) VIAL (Unknown Dose) INJ Q6M FOR EYE DROOP (Reported) Triage Note: PT DC FROM HOSPITAL ON 08/10. RETURNS WITH INCREASING GEN WEAKNESS, DIZZINESS ON STANDING, MULTIPLE FALLS AND ELEVATED BLOOD SUGAR >500 FOR EMS. PT HYPOTENSIVE ON EMS ARRIVAL 80/40. RECEIVED 1L NS EN ROUTE. PER DAUGHTER PT USUALLY DRINKS DAILY AND HASNT HAD DRINK SINCE WEDNESDAY. ALSO REPORTS MASS FOUND ON PANCREAS, HAS APPT FOR BIOPSY ON WEDNESDAY AT [place] [facility] Triage Nurses Notes Reviewed? yes Duration: day(s):, constant, continues in ED, getting worse Timing: recent history Quality/Severity: aching, fullness, severe, vomiting Location: generalized abdomen Radiation: no radiation Activities at Onset: eating, rest Prior Abdominal Problems: similar symptoms Past Sexual History: Unobtainable at this time Modifying Factors: Worsens With: eating, palpation. Associated Symptoms: abdominal pain, loss of appetite, nausea/vomiting, weakness HPI: Patient was recently discharged from the hospital for obstructive jaundice secondary to pancreatic cancer. Since discharge the patient hss been unable to eat with nausea vomiting lately of coffee-ground emesis. He feels weak dizzy. There's been no fever chills chest pain cough shortness of breath headache dysuria rash. Past History Travel History Traveled to [place] past 21 day No Medical History Any Pertinent Medical History? see below for history Neurological: NONE EENT: NONE Cardiovascular: hypertension Respiratory: NONE Gastrointestinal: Pancreatic cancer, obstructive jaundice Hepatic: NONE Renal: NONE Musculoskeletal: NECK SURGERY W/PLATE Psychiatric: NONE Endocrine: NONE Blood Disorders: NONE Cancer(s): NONE SEASONER/Reproductive: NONE History of MRSA: No History of VRE: No History of CDIFF: No Surgical History Surgical History: N Psychosocial History Who do you live with Spouse Services at Home None What is your primary language Thai Tobacco Use: Current Daily Use Daily Tobacco Use Amount/Type: =< 4 Cigarettes daily ETOH Use: heavy use Illicit Drug Use: denies illicit drug use Family History Family History, If Any: FATHER (HTN). Hx Contributory? No Review of Systems Review of Systems Constitutional: Reports: see HPI, weakness. EENTM: Reports: see HPI, icterus. Respiratory: Reports: no symptoms. Cardiovascular: Reports: no symptoms. GI: Reports: see HPI, abdominal pain, nausea, vomiting. Genitourinary: Reports: no symptoms. Musculoskeletal: Reports: no symptoms. Skin: Reports: no symptoms. Neurological/Psychological: Reports: no symptoms. Hematologic/Endocrine: Reports: no symptoms. Immunologic/Allergic: Reports: no symptoms. All Other Systems: Reviewed and Negative Physical Exam Physical Exam General Appearance: well developed/nourished, alert, awake, severe distress, thin Head: atraumatic, normal appearance Eyes: Bilateral: PERRL, EOMI, other (scleral icterus). Ears, Nose, Throat, Mouth: hearing grossly normal, dry mucous membranes Neck: normal inspection, supple, full range of motion, no midline tenderness Respiratory: normal breath sounds, chest non-tender, no respiratory distress, quiet respiration, lungs clear Cardiovascular: regular rate/rhythm, normal peripheral pulses, tachycardia, norml femoral pulses equa Peripheral Pulses: 4+ carotid (R), 4+ carotid (L) Gastrointestinal: normal bowel sounds, soft, abnormal bowel sounds, tenderness Male Genitals: normal genitalia Back: normal inspection, normal range of motion, no vertebral tenderness Extremities: normal range of motion, no ligament instability Neurologic/Psych: no motor/sensory deficits, awake, alert, oriented x 3, normal gait, normal mood/affect, returning officer II-XII nml as tested Skin: intact, warm/dry Core Measures ACS in differential dx? No Sepsis Present: No Sepsis Focused Exam Completed? No Progress Differential Diagnosis: gastritis, pancreatitis, PUD/GERD Plan of Care: Orders Procedure Date/time Status LACTIC ACID 08/15 1947 Active LACTIC ACID 08/14 1648 Complete ARTERIAL BLOOD GAS (GEN) 08/14 1642 Active MAGNESIUM 08/14 1413 Complete [place]ues[place], Insertion/Removal/Asses 08/14 1405 Active CULTURE,URINE 08/14 1405 Active EKG 08/14 140 Active URINALYSIS 08/14 1356 Complete PARTIAL THROMBOPLASTIN TIME 08/14 1258 Complete PROTHROMBIN TIME 08/14 1258 Complete LIPASE 08/14 1258 Complete DIRECT BILIRUBIN 08/14 1258 Complete COMPREHENSIVE METABOLIC PANEL 08/14 1258 Complete CBC WITHOUT DIFFERENTIAL 08/14 1258 Complete Current Medications Sig/Vivi Start time Last Medication Dose Stop Time Status Admin Sodium Chloride 1,000 ML BOLUS ONE 08/14 1844 UNVr (Normal Saline 0.9%) 08/15 1943 Laboratory Tests 08/14/17 1713: Lactic Acid 2.1 08/14/17 1710: pH 7.47 H, pCO2 75 *H, pO2 64 L, HCO3 25, ABG O2 Sat (Measured) 88.0 L, P-50 (Temp Corrected) Y, Carboxyhemoglobin 1.1 L, O2 Concentration % 2.5L, Temperature 97.7, O2 Delivery Method NC, Phlebotomy Draw Site RIGHT RADIAL 08/14/17 1515: Magnesium 2.7 H 08/14/17 1413: Urinalysis LIGHT H, Urine Color LEATHA, Urine Clarity HAZY H, Urine pH 6.5, Ur Specific Webb 1.025, Urine Protein 100 H, Urine Ketones TRACE H, Urine Nitrite POS H, Urine Bilirubin POS@ICTO H, Urine Urobilinogen 1.0, Ur Leukocyte Esterase NEG, Ur Microscopic SEDIMENT EXAMINED, Urine RBC 1-3, Urine WBC RARE, Ur Epithelial Cells FEW, Urine Bacteria FEW H, Hyaline Casts 10-15 H , Granular Casts 1-3 H, Urine Hemoglobin NEG, Urine Glucose 500 H 08/14/17 1304: Anion Gap 30 H, Estimated GFR 6 L, BUN/Creatinine Ratio 12.6, Glucose 453 H, Calcium 7.1 L, Total Bilirubin 3.8 H, Direct Bilirubin 2.9 H, AST 131 H, ALT 212 H, Alkaline Phosphatase 178 H, Total Protein 7.3, Albumin 4.1, Globulin 3.2, Albumin/Globulin Ratio 1.3, Lipase 684 H, PT 21.5 H, INR 1.96 H, APTT 31 , CBC w Diff MAN DIFF ORDERED, RBC 5.07, MCV 89.8, MCH 30.6, MCHC 34.0, RDW 13.8 , MPV 11.0 H, Gran % 88.6 H, Lymphocytes % 4.0 L, Monocytes % 7.3, Eosinophils % 0, Basophils % 0.1, Absolute Granulocytes 19.0 H, Absolute Lymphocytes 0.8 L, Absolute Monocytes 1.6 H, Absolute Eosinophils 0, Absolute Basophils 0, Normocytic RBCs VERIFIED, Normochromic RBCs VERIFIED Microbiology 08/14 1413 URINE ROUT: Urine Culture - RECD Diagnostic Imaging: Viewed by Me: Radiology Read, Ultrasound. Discussed w/RAD: Radiology Read, Ultrasound. Radiology Impression: Unremarkable sonographic evaluation of the kidneys. No hydronephrosis. Trace perihepatic ascites, nonspecific. CXR Impression: There is mild left base atelectasis versus infiltrate, which could be more fully evaluated with a lateral view. Recommend continued radiographic follow-up to clearance. Initial ED EKG: normal axis, normal intervals, normal p-waves, normal QRS complex, nonspecific ST T wave chg Prior EKG: unchanged Rhythm Strip: sinus tachycardia Comments: D/W [facility] Dr. Mello accepts in transfer to SDU. Departure Departure Time of Disposition: 1836 Disposition: OTHER [facility] (AC[facility]) Condition: Critical Clinical Impression Primary Impression: Acute renal failure Secondary Impressions: GI bleed, Hypokalemia, Pancreatic cancer Referrals: Adrien BOYKIN,Robert Puentes (PCP/Family) Departure Forms: Customer Survey General Discharge Information Critical Care Note Critical Care Note Critical Care Time: 30-74 min (90) ED Attending Observation Initial Observation Note: I have seen and personally examined MOI PULLIAM on 08/14/17 at 1837. I agree with the current emergency department documentation. The disposition (admission or discharge) is uncertain at this time, he needs a period of observation for the following reason(s): The ED Nurse caring for this patient has been personally informed as to what the patient is being observed for.
[2017-08-14] MEDS ORDERED: BOTOX200 UNIT INJ (16:49)
[2017-08-14 20:29] VITALS: BP 117/66
== END 2017-08-14 20:54 | disposition short-term general hospital (02) ==
LOC: ERH 12:44
PROVIDERS: Emergency Medicine
DX: N17.9 Acute kidney failure, unspecified (principal); E87.6 Hypokalemia; K92.2 Gastrointestinal hemorrhage, unspecified; C25.9 Malignant neoplasm of pancreas, unspecified
CPT/HCPCS: 71045; 76775; 81001; 87086; 93005; 93010; 96361; 96365; 96375; 99291; J2405